=== PATIENT | female | born 1970 | race Caucasian/White ===

== ENCOUNTER → 2017-03-29 | Outpatient (CLI) | payer MEDICAID ==
[~2017-03-29] MED LIST: ACID1TAB7 PO; ALBU18HF INH; ALBU8.5H5 INH; ALPR1TAB10 PO; AMOX875T PO; APIX2.5T PO; APIX5TAB PO; ATOR10TA9 PO; BENZ100C PO; CEFA1FRO IV; CEFD300C37 PO; CITA40TA5 PO; CYCL-259 PO; ENOX120S4 SQ; ESCI20TA PO; FENO160T11 PO; FENOFIBRATE; FLUT1BLS IH; FLUT1DIS3 INH; GABA300C10 PO; HYDR12.53 PO; LEVO25TA4 PO; LISI40TA PO; LORA10TA72 PO; METO50TA82 PO; MULT-257 PO; NYST1000 PO; OMEP20CA14 PO; OMNIPAQUE 350 MG/ML, 100ML BOTTLE ONE; PRAM1TAB5 PO; PRAZ5CAP2 PO; PROM25SU34 PO; ROPI1TAB2 PO; SUMA50TA3 PO; TEMA30CA PO; TRAM50TA2 PO; TRIA5PAS4 TP; WARF10TA6 PO-COUM
== END | disposition home or self-care (01) ==
LOC: RAD 16:10
PROVIDERS: ATTEND Nurse Practitioner
DX: I51.7 Cardiomegaly (principal); I26.99 Other pulmonary embolism without acute cor pulmonale
CPT/HCPCS: 71275; Q9967